=== PATIENT | male | born 1975 | race Caucasian/White ===

== ENCOUNTER → 2017-03-01 | Day surgery (SDC) | payer OTHER ==
[~2017-03-01] MED LIST: AUGMENTIN PO; CLARITIN D PO; NAPROXEN SODIU500 MG PO; VICODIN PO
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
== END | disposition home or self-care (01) ==
LOC: CCSC 09:40
DX: M53.87 Other specified dorsopathies, lumbosacral region (principal); M53.86 Other specified dorsopathies, lumbar region; M51.16 Intervertebral disc disorders with radiculopathy, lumbar region; M51.17 Intervertebral disc disorders with radiculopathy, lumbosacral region; Z79.899 Other long term (current) drug therapy
CPT/HCPCS: J1040; J2250